=== PATIENT | male | born 1960 | race Caucasian/White ===

== ENCOUNTER 2019-03-17 10:11 | Day surgery (SDC) | payer OTHER ==
[~2019-03-17] VITALS: Ht 177.8 cm; Wt 104.6 kg
[2019-03-17] VITALS (8 sets, daily range): BP systolic 86–127; BP diastolic 50–75; PULSE 50–58; RESP 13–19; Ht 177.8 cm; Wt 104.6 kg
[~2019-03-17 10:11] MED LIST: HYDR-3498 PO; TAMS-14 PO
[2019-03-17] MEDS ORDERED: NORVASC (11:22)
[2019-03-17] MEDS ORDERED: OMEPRAZOLE (11:22)
[2019-03-17] MEDS ORDERED: FISH OIL (11:22)
--- NOTE | 2019-03-17 11:30 | PREAC ---
Date/Time of Note Date/Time of Note DATE: 03/17/19 TIME: 11:28 Anesthesia Eval and Record Evaluation Time Pre-Procedure Interview DATE: 03/17/19 TIME: 11:28 Age 58 Sex male NPO: 8 hrs Preoperative diagnosis screening, Esophagitis Planned procedure EGD, & Colonoscopy Past Medical History Past Medical History: Includes Cardio: HTN, Dyslipidemia Renal: Other (BPH) Surgery & Anesthesia Issues No known issue Meds Anticoagulation: No Beta Delaney within 24 hr: No Reason Beta Delaney not given: Pt. not on B-Delaney Active Scripts Tamsulosin Hcl* (Flomax*) 0.4 Mg Cap.er.24h, 0.4 MG PO QPM, #10 CAP Prov:HENRI YOUNGBLOOD MD 12/17/15 Reported Medications [Fish Oil] No Conflict Check 03/17/19 [Omeprazole] No Conflict Check 03/17/19 [Norvasc] No Conflict Check 03/17/19 Discontinued Scripts Hydrocodone Bit-Acetaminophen* ([place]*) 5-325 Mg Tab, 1 TAB PO Q6 PRN for PAIN, #7 TAB Prov:HENRI YOUNGBLOOD MD 12/17/15 Meds reviewed: Yes Allergies Coded Allergies: No Known Allergy (Unverified , 12/17/15) Allergies Reviewed: Yes Labs/Studies Labs Reviewed: Reviewed by anesthesiologist test: N/A Studies: ECG (n/a), CXR (n/a) Pre-procedure Exam Airway: Adequate mouth opening, Adequate thyromental dist Mallampati: Mallampati II Teeth: Normal Lung: Normal Heart: Normal ASA Physical Status ASA physical status: 2 Emergency: None Planned Anesthetic General/MAC: MAC Planned Pain Management Parenteral pain med Pre-operative Attestations Prior to commencing anesthesia and surgery, the patient was re-evaluated, there was verification of: *The patient's identity *The results of appropriate recent lab work and preoperative vital signs *The above evaluation not changing prior to induction *Anesthetic plan, risk benefits, alternative and complications discussed with patient/family; questions answered; patient/family understands, accepts and wishes to proceed. TIFFANIE LOGAN MD Mar 17, 2019 11:30
[2019-03-17] MEDS ORDERED: PROPOFOL 60 ML ONE (12:39)
--- NOTE | 2019-03-17 12:40 | PAC ---
Date/Time of Note Date/Time of Note DATE: 03/17/19 TIME: 12:40 Post-Anesthesia Notes Post-Anesthesia Note Last documented vital signs T: 98.0 Activity: WNL Respiratory function: WNL Cardiovascular function: WNL Mental status: Baseline Pain reasonably controlled: Yes Hydration appropriate: Yes Nausea/Vomiting absent: Yes TIFFANIE LOGAN MD Mar 17, 2019 12:40
== END 2019-03-17 13:08 | disposition home or self-care (01) ==
LOC: GIL 10:11
PROVIDERS: ATTEND Internal Medicine Gastroenterology
DX: Z12.11 Encounter for screening for malignant neoplasm of colon (principal); K29.50 Unspecified chronic gastritis without bleeding; K64.8 Other hemorrhoids; D12.5 Benign neoplasm of sigmoid colon; D12.8 Benign neoplasm of rectum; K44.9 Diaphragmatic hernia without obstruction or gangrene; K21.9 Gastro-esophageal reflux disease without esophagitis; I10 Essential (primary) hypertension; E78.5 Hyperlipidemia, unspecified
CPT/HCPCS: 43239; 45380; 45385; 88305; 88312; Z7610